=== PATIENT | male | born 1995 | race Caucasian/White ===

== ENCOUNTER 2017-02-13 14:17 | Emergency (ER) | payer BC ==
[~2017-02-13] VITALS: Ht 177.8 cm; Wt 91.7 kg
[2017-02-13 14:35] VITALS: Ht 177.8 cm; Wt 91.7 kg
--- NOTE | 2017-02-13 14:53 | EMERGENCY ROOM VISIT NOTE ---
ED Visit Note First contact with patient: 14:38 CHIEF COMPLAINT: Possible bite HISTORY OF PRESENT ILLNESS: This 21-year-old male patient presents to the emergency department ambulatory complaining of a small blue coby on the left calf which started 1.5 days ago. The patient states he was running on a [place]. He states that when he ran passed a blood she he felt a sting to the left calf. He does not know if this was from an insect, a stick, an object. He did not see anything. He does not have any pain at the site. He does not have any pain in the muscle and can move without any difficulty. He states he noticed a small blue line. There is no bleeding. There is no erythema, warmth or swelling. He has not had fevers. The patient denies fever , chills, nausea, or loss of appetite. They deny any URI symptoms. The patient has tried nothing. The patient states the rash is not itchy and rates the discomfort as 2/10. No change in food, soap, detergents, or other environmental factors. No new medications. No weakness or numbness. REVIEW OF SYSTEMS: A 6 system review of systems was completed with positives and pertinent negatives listed in the HPI. ALLERGIES: No known drug allergies MEDICATIONS: Doxycycline PMH: None SOCIAL HISTORY: Patient lives locally. He is not a smoker. PHYSICAL EXAM: Vital Signs: Reviewed Nurse's notes, vital signs stable. GENERAL : This is a 21-year-old male, in no acute distress, well-developed, well- nourished. SKIN: There is a very faint, small, fine linear area of ecchymosis that is approximately 1 mm x 3 mm. There is no erythema, warmth, fluctuance, swelling, tenderness. There is no necrosis. There are no open areas. Capillary refill less than 2 seconds. EMERGENCY DEPARTMENT COURSE: The patient was seen and examined. The patient has a small lesion on the left calf. It occurred when he was running and felt a sting to his leg. It does not appear to be infected. There does not appear to be any foreign body. I do not suspect a snake bite. I do not suspect brown recluse or black bite. There is no sign of abscess. The patient has full range of motion of the calf. I do not suspect muscle tear. This could be from a very small area of trauma which caused a small amount of bleeding beneath the skin. The patient should monitor the area. He should return with any worsening symptoms. Problem List Medical Problems: (1) No significant medical problems Status: Chronic Surgical Problems: (1) No significant past surgical history Status: Chronic Current/Historical Medications Scheduled Doxycycline Hyclate (Vibramycin), 100 MG PO BID Allergies Coded Allergies: Penicillins (Verified Allergy, Intermediate, Diarrhea,nausea and headache , 02/13/17) Vital Signs Date Time Temp Pulse Resp B/P (MAP) Pulse Ox O2 Delivery O2 Flow Rate FiO2 02/13/17 15:02 37.1 69 15 146/88 95 02/13/17 14:35 37.1 69 15 146/88 95 Room Air Departure Information Impression Primary Impression: Superficial bruising of lower leg Dispostion Home / Self-Care Condition GOOD Referrals No Doctor, Assigned (PCP) Patient Instructions My [facility] Additional Instructions Monitor the area closely. Return with any redness, swelling, warmth, fevers or generalized worsening symptoms. Otherwise, follow-up with your family doctor as needed. Problem Qualifiers Primary Impression: Superficial bruising of lower leg Encounter type: initial encounter Laterality: left Qualified Codes: S80.12XA - Contusion of left lower leg, initial encounter
[2017-02-13] MEDS ORDERED: DOXY100C2 PO (14:57)
[2017-02-13 15:02] VITALS: BP 146/88; PULSE 69; TEMP 37.1; O2SAT 95
== END 2017-02-13 15:03 | disposition home or self-care (01) ==
LOC: C.EDB 14:19 → C.EDD 15:03
DX: S80.12XA Contusion of left lower leg, initial encounter (principal); W57.XXXA Bitten or stung by nonvenomous insect and other nonvenomous arthropods, initial encounter; Y93.02 Activity, running; Y99.8 Other external cause status

== ENCOUNTER 2018-01-17 10:08 | Emergency (ER) | payer BC, OTHER ==
[~2018-01-17] VITALS: Ht 177.8 cm; Wt 91.0 kg
[~2018-01-17 10:08] MED LIST: DOXY100C2 PO
[2018-01-17 10:13] VITALS: BP 147/88; PULSE 77; TEMP 36.7; O2SAT 93; Ht 177.8 cm; Wt 91.0 kg
--- NOTE | 2018-01-17 10:42 | EMERGENCY ROOM VISIT NOTE ---
History Report prepared by Scribe: Tena Lim Under the Supervision of: Dr. Chico Espinosa D.O. First contact with patient: 10:24 Chief Complaint: EYE PAIN Stated Complaint: LEFT EYE PAIN FROM EYE INJURY History of Present Illness The patient is a 22 year old male who presents to the Emergency Room with complaints of intermittent, worsening L eye pain beginning 2 days ago. He notes he got "dirty rain water" in the eye, and has been experiencing intermittent pain since this exposure. The patient reports some redness of the L eye, and headaches. He states he has not noticed a foreign body in the eye and has not experienced any vision loss. Source of History: patient Onset: 2 days ago Position: eye (left) Quality: other (eye pain) Timing: intermittent, worsening Associated Symptoms: + headache Note: Associated symptom: L eye redness. Denies: vision loss Review of Systems See HPI for pertinent positives & negatives. A total of 6 systems reviewed and were otherwise negative. Past Medical & Surgical Medical Problems: (1) No significant medical problems Surgical Problems: (1) No significant past surgical history Family History No pertinent family history stated. Social History Smoking Status: Never Smoker Alcohol Use: occasionally Marital Status: single Occupation Status: employed Current/Historical Medications Scheduled Doxycycline Hyclate (Vibramycin), 100 MG PO BID Allergies Coded Allergies: Penicillins (Verified Allergy, Intermediate, Diarrhea,nausea and headache , 02/13/17) Physical Exam Vital Signs Date Time Temp Pulse Resp B/P (MAP) Pulse Ox O2 Delivery O2 Flow Rate FiO2 01/17/18 10:13 36.7 77 18 147/88 93 Room Air Right Eye Acuity: 20/25 Left Eye Acuity: 20/20 Physical Exam CONSTITUTIONAL/VITAL SIGNS: Reviewed / noted above. GENERAL: Non-toxic in appearance. INTEGUMENTARY: Warm, dry, and [place]. HEAD: Normocephalic. EYES: without scleral icterus or trauma. ENT/OROPHARYNX: clear and moist. RESPIRATORY: No respiratory distress. EXTREMITIES: Warm and well perfused. NEUROLOGICAL: Intact without focal deficits. PSYCHIATRIC: normal affect. MUSCULOSKELETAL: Normally developed with good muscle tone. Medical Decision & Procedures Procedure Slit Lamp Examination Indication:L eye pain The left eye was prepped with topical proparacaine. Slit lamp examination was performed in the standard fashion. Cornea appeared clear. Anterior chamber clear. Scleral injection not present. No discharge present. No foreign bodies noted. The patient tolerated the procedure well without complication. ED Course 1028: Previous medical records were reviewed. The patient was evaluated in room A9B. A complete history and physical examination was performed. I performed a slit lamp exam procedure. I discussed the results and findings with the patient. The patient verbalized agreement of the treatment plan. The patient was discharged home. Medical Decision Differential considered: infection,foreign body, acute glaucoma, abrasion. This is a 22-year-old male who presents to the ED with a chief complaint of intermittent eye discomfort for the past day or 2. He states that he got some dirty [place] in his left eye and was concerned about possible infection. His exam did not reveal any abnormalities. There is no conjunctival injection. There is no discharge. The patient has normal extraocular motion. Pupils are equal and reactive to light. He has no discomfort with exposure to light. The patient's eye was examined under direct visualization as well as slit-lamp exam. There is no evidence of corneal abnormality. There is no foreign bodies. After evaluation, the patient was felt to be stable for discharge. He was told to follow-up with an eyeglass inspector if his symptoms persist this week. Medication Reconcilliation Current Medication List: was personally reviewed by me Blood Pressure Screening Patient's blood pressure: Elevated blood pressure Blood pressure disposition: Elevated BP felt to be situational Impression Primary Impression: Left eye pain Scribe Attestation The scribe's documentation has been prepared under my direction and personally reviewed by me in its entirety. I confirm that the note above accurately reflects all work, treatment, procedures, and medical decision making performed by me. Departure Information Dispostion Home / Self-Care Referrals No Doctor, Assigned (PCP) Patient Instructions My [facility]
== END 2018-01-17 10:42 | disposition home or self-care (01) ==
LOC: C.EDB 10:10 → C.EDA 10:42
DX: H57.12 Ocular pain, left eye (principal); Z88.0 Allergy status to penicillin